=== PATIENT | male | born 1950 | race Caucasian/White ===

== ENCOUNTER 2022-07-16 04:12 | Day surgery (SDC) | payer MEDICARE, SELFPAY ==
[2022-07-16] VITALS (20 sets, daily range): BP systolic 103–153; BP diastolic 58–76; PULSE 81–100; RESP 10–20; TEMP 36.2–37; O2SAT 89–100
--- NOTE | ~2022-07-16 | CT_ITS ---
EXAMINATION: CT abdomen pelvis w con DATE: 07/16/2022 06:27 INDICATION: Abdominal pain. TECHNIQUE: Computed tomography (CT) of the abdomen and pelvis was performed with 100 mL Omnipaque-350 intravenous contrast. Automated exposure control and iterative reconstruction technique were employe d. The dose-length product was 1229.12 mGy-cm. COMPARISON: None FINDINGS: Lung bases are clear. Heart size is normal. No pericardial or pleural effusion. Liver, gallbladder, s pleen, pancreas, bilateral kidneys and right adrenal gland are normal. 1.3 cm left adrenal nodule sta tistically most likely to represent an adenoma. There is mild colonic diverticulosis with a sigmoid p redominance. There is no adjacent inflammatory change to suggest diverticulitis. No bowel obstructio n. There are several calcified appendicoliths and fluid within the appendix which is dilated to 1.3 c m but which is without surrounding inflammatory stranding to suggest acute appendicitis. Prostatomega ly measuring 4.8 x 4.2 cm. Bladder is normal. No pathologically enlarged abdominal or pelvic lymphade nopathy. No free intraperitoneal gas or fluid. Small fat-containing umbilical and left inguinal herni as. 8 mm linear density centrally at the within the glands of the penis which is of calcific density, unclear whether representing dystrophic calcification or foreign body. Spinal stimulator device in t he subcutaneous tissues at the left lower lumbar region with leads extending into the lower thoracic central canal terminating at the level of T8-T9. L5 laminectomy and partial L4 laminectomy with 3 mm anterolisthesis of L4 on L5. Mild thoracolumbar spondylosis. IMPRESSION: 1. Several calcified appendicoliths and fluid filling the appendix which is dilated to 1.3 cm which c ould be seen with acute appendicitis although there is no periappendiceal inflammatory stranding to m ore specifically suggest this. No other acute intra-abdominal/pelvic process. 2. Mild diverticulosis. 3. Prostatomegaly. Reviewed, dictated and finalized at location A. IMPRESSION: 1. Several calcified appendicoliths and fluid filling the appendix which is dil ated to 1.3 cm which could be seen with acute appendicitis although there is no periappendiceal inflammatory stranding to more specifically suggest this. No o ther acute intra-abdominal/pelvic process. 2. Mild diverticulosis. 3. Prostatomegaly.
--- NOTE | 2022-07-16 04:57 | ED.ABDPAIN ---
HPI - Abdominal Pain General Chief Complaint: Abdominal Pain Stated Complaint: RLQ abdominal pain Time Seen by Provider: 07/16/22 04:35 History of Present Illness HPI narrative: This is a 72-year-old male with past medical history of hypertension, who presents the emergency department complaining of severe abdominal pain beginning at approximately 10 PM last night. The patient states 2 days ago he noted some vague abdominal symptoms including nausea, that worsens to sharp abdominal pain associated with bowel distention and nausea. The patient denies vomiting. He states his last bowel movement was yesterday morning and last passed gas around the same time. Related Data Allergies Allergy/AdvReac Type Severity Reaction Status Date / Time No Known Allergies Allergy Verified 07/16/22 05:20 Review of Systems Review of Systems: CONSTITUTIONAL: Denies fever, chills, or sweats. EYES: Denies visual changes, redness, or discharge. ENT: Denies rhinorrhea, congestion, sore throat, or otalgia. CARDIOVASCULAR: Denies chest pain, palpitations, or edema. RESPIRATORY: Denies cough or dyspnea. GASTROINTESTINAL: Abdominal pain, nausea denies vomiting, or diarrhea. GENITOURINARY: Denies dysuria or hematuria. SKIN: Denies rash or itching. MUSCULOSKELETAL: Denies back pain, joint pain, or myalgia. NEUROLOGIC: Denies headache, numbness, dizziness, or weakness. PSYCHIATRIC: Denies anxiety or depression. Exam Narrative: GENERAL: Well-developed, well-nourished, appears uncomfortable HEAD: Normocephalic, atraumatic. EYES: PERRLA and EOMI. ENT: Nares clear, no rhinorrhea or epistaxis. Mucous membranes moist. Oropharynx without tonsillar hypertrophy exudate or other lesions. NECK: Supple. No adenopathy or masses. No carotid bruits or JVD CHEST: Clear to auscultation. No respiratory distress. No wheezes rales or rhonchi HEART: Regular rate and rhythm. No murmur heard. Normal peripheral pulses. ABDOMEN: Soft, diffuse tenderness to palpation greatest in the right lower quadrant, distended, normal active bowel sounds. No CVA tenderness to palpation EXTREMITIES: Normal range of motion. No edema. SKIN: Warm, dry, no rash. NEURO: No focal deficits. Alert and oriented x3. PSYCH: Normal mood and affect. Course Course Emergency Course: 07:10 - CT consistnet with appendicolith and early changes concerning for appendicitis. Paged general surgery for evaluation. 07:20 - Discussed patient with general surgeon, Dr. Scott who request patient be given a dose of Zosyn with plan to go to the OR today. Discussed recommendations with the patient who voices understanding and is comfortable with the plan. All questions answered to the patient and his 's satisfaction. Vital Signs Vital signs: Vital Signs Temperature 97.3 F L 07/16/22 04:19 Pulse Rate 100 07/16/22 04:19 Respiratory Rate 18 07/16/22 04:19 Blood Pressure 147/76 H 07/16/22 04:19 Pulse Oximetry 97 07/16/22 04:19 Oxygen Delivery Room Air 07/16/22 04:19 Temperature 97.3 F L 07/16/22 04:19 Pulse Rate 100 07/16/22 04:19 Respiratory Rate 18 07/16/22 04:19 Blood Pressure 147/76 H 07/16/22 04:19 Pulse Oximetry 92 07/16/22 05:34 Oxygen Delivery Room Air 07/16/22 04:19 MDM - Abdominal Pain MDM Narrative Medical decision making narrative: Plan: Labs, imaging, pain control, reassess Differential Diagnosis Differential diagnosis: Likely pancreatitis and other (Bowel obstruction, UTI, pyelonephritis, other) Lab Data Result diagrams: 07/16/22 05:31 07/16/22 05:31 Labs: Lab Results 07/16/22 07/16/22 07/16/22 Range/Units 05:31 05:31 05:31 WBC 23.5 H (4.5-10.0) K/mm3 RBC 4.70 (4.6-6.20) M/mm3 Hgb 14.0 (14.0-18.0) g/dL Hct 42.2 (42.0-52.0) % MCV 89.8 (80-100) fl MCH 29.8 (26-34) pg MCHC 33.2 (32-36) g/dl RDW 13.3 (11.5-14.5) % Plt Count 371 (150-375) k/mm3 MPV 10.1 (7.4-10.4) fl
[2022-07-16] MEDS: ONDANSETRON INJ 4 MG/2 ML VIAL IV PUSH (05:28)
[2022-07-16] MEDS: MORPHINE SULFATE (*CRX) 4 MG/ML INJ IV PUSH ×2 (05:28→07:21)
[2022-07-16] MEDS: SODIUM CHLORIDE 0.9% IV 1,000 ML 999 ML IV CONT (05:28)
[2022-07-16 05:35] LABS: Basophils Absolute Auto 0.2 K/mm3 (0.0-0.1); Basophils Percent Auto 0.8 % (0.2-1.2); Eosinophils Absolute Auto 0.5 K/mm3 (0-0.3); Eosinophils Percent Auto 2.3 % (0-4.4); Hematocrit 42.2 % (42.0-52.0); Immature Granulocyte Absolute 0.11 K/mm3 (0.00-0.031); Immature Granulocyte Percent A 0.5 % (0-0.5); Lymphocytes Absolute Auto 2.36 K/mm3 (0.9-3.2); Mean Corpuscular HGB Conc 33.2 g/dl (32-36); Mean Corpuscular Hemoglobin 29.8 pg (26-34); Mean Corpuscular Volume 89.8 fl (80-100); Mean Platelet Volume 10.1 fl (7.4-10.4); Monocytes Absolute Auto 1.6 K/mm3 (0.1-0.6); Monocytes Percent Auto 6.8 % (2.6-8.5); Neutrophils Absolute Auto 18.7 K/mm3 (1.3-6.7); Neutrophils Percent Auto 79.6 % (45.5-73.1); Platelet Count Result 371 k/mm3 (150-375); Red Cell Distribution Width 13.3 % (11.5-14.5); White Blood Count 23.5 K/mm3 (4.5-10.0)
[2022-07-16 05:46] LABS: Lactic Acid Reflex 1.4 mmol/L (0.7-2.0)
[2022-07-16 05:47] LABS: Alanine Aminotransferase 23 U/L (6-50); Albumin Level 4.5 g/dL (3.5-5.1); Alkaline Phosphatase 73 U/L (38-126); Anion Gap 11 mmol/L (8-16); Aspartate Amino Transferase 23 U/L (17-59); Bilirubin,Total 0.5 mg/dL (0.2-1.3); Blood Urea Nitrogen 25 mg/dL (9-20); Calcium 9.8 mg/dL (8.4-10.2); Carbon Dioxide 26 mmol/L (22-30); Chloride 101 mmol/L (98-107); Estimated CRCL calculation 72 ml/min; Estimated Glomerular Filt Rate > 60; Glucose 142 mg/dL (65-110); Lipase 60 U/L (23-300); Potassium 4.3 mmol/L (3.4-5.0); Sodium 138 mmol/L (137-145)
[2022-07-16 05:53] LABS: INR 1.1; Prothrombin Time 13.4 Seconds (11.1-14.7)
[2022-07-16 07:18] LABS: Appearance Urine Clear (Clear); Bilirubin Urine Negative (Negative); Blood Urine Negative (Negative); Color Urine Yellow (Yellow); Glucose Urine UA Negative (Negative); Ketones Urine Negative (Negative); Leukocyte Esterase Ur Negative LEU/UL (Negative); Nitrate Urine Negative (Negative); Protein Urine Negative (Negative); Urobilinogen Urine 0.2 mg/dL (<2.0); pH Urine 6.5 (5.0-9.0)
[2022-07-16 07:31] LABS: Add Urine Microscopic? NO
--- NOTE | 2022-07-16 08:26 | WPDANESEPPF ---
Anes - Initial Pre Proc Eval Procedure: Operation Date: 07/16/22 10:30 Proposed Procedures p Laparoscopic Appendectomy - Mateo Scott MD Date/Time: 07/16/22 08:26 Surgeon: Mateo Scott MD Pre Op Diagnosis: RLQ abdominal pain Patient Data Age: 72 Gender: M Height: 1.68 m Weight: 116.36 kg Last Vital Signs Temp 37.0 C 07/16/22 07:51 Pulse 90 07/16/22 07:27 Resp 16 07/16/22 07:27 BP 140/75 07/16/22 07:27 Pulse Ox 94 07/16/22 07:27 O2 Del Method Room Air 07/16/22 04:19 Allergies Allergy/AdvReac Type Severity Reaction Status Date / Time No Known Allergies Allergy Verified 07/16/22 07:57 Laboratory Tests 07/16/22 07/16/22 07/16/22 05:31 05:31 05:31 WBC 23.5 K/mm3 H K/mm3 (4.5-10.0) RBC 4.70 M/mm3 M/mm3 (4.6-6.20) Hgb 14.0 g/dL g/dL (14.0-18.0) Hct 42.2 % % (42.0-52.0) MCV 89.8 fl fl (80-100) MCH 29.8 pg pg (26-34) MCHC 33.2 g/dl g/dl (32-36) RDW 13.3 % % (11.5-14.5) Plt Count 371 k/mm3 k/mm3 (150-375) MPV 10.1 fl fl (7.4-10.4) Immature Gran % (Auto) 0.5 % % (0-0.5) Neut % (Auto) 79.6 % H % (45.5-73.1) Lymph % (Auto) 10.0 % L % (18.3-44.2) [place] % (Auto) 6.8 % % (2.6-8.5) Eos % (Auto) 2.3 % % (0-4.4) Baso % (Auto) 0.8 % % (0.2-1.2) Lymph # (Auto) 2.36 K/mm3 K/mm3 (0.9-3.2) [place] # (Auto) 1.6 K/mm3 H K/mm3 (0.1-0.6) Eos # (Auto) 0.5 K/mm3 H K/mm3 (0-0.3) Baso # (Auto) 0.2 K/mm3 H K/mm3 (0.0-0.1) Abs Immat Gran (auto) 0.11 K/mm3 H K/mm3 (0.00-0.031) Absolute Neuts (auto) 18.7 K/mm3 H K/mm3 (1.3-6.7) Absolute Nucleated RBC 0.0 K/mm3 K/mm3 (0.0-0.012) Nucleated RBC % 0.0 % % (0.0-0.2) PT 13.4 Seconds Seconds (11.1-14.7) INR 1.1 Sodium 138 mmol/L mmol/L (137-145) Potassium 4.3 mmol/L mmol/L (3.4-5.0) Chloride 101 mmol/L mmol/L (98-107) Carbon Dioxide 26 mmol/L mmol/L (22-30) Anion Gap 11 mmol/L mmol/L (8-16) BUN 25 mg/dL H mg/dL (9-20) Creatinine 1.00 mg/dL mg/dL (0.7-1.3) Estim Creat Clear Calc 72 ml/min ml/min Estimated GFR > 60 (59 - ) Glucose 142 mg/dL H mg/dL (65-110) Lactic Acid Calcium 9.8 mg/dL mg/dL (8.4-10.2) Total Bilirubin 0.5 mg/dL mg/dL (0.2-1.3) AST 23 U/L U/L (17-59) ALT 23 U/L U/L (6-50) Alkaline Phosphatase 73 U/L U/L (38-126) Total Protein 7.0 g/dL g/dL (6.3-8.2) Albumin 4.5 g/dL g/dL (3.5-5.1) Lipase 60 U/L U/L (23-300) Urine Color Urine Appearance Urine pH Ur Specific [place] Urine Protein Urine Glucose (UA) Urine Ketones Ur Blood (Man) Urine Nitrate Urine Bilirubin Urine Urobilinogen Leukocyte Esterase Rfl 07/16/22 07/16/22 05:31 06:58 WBC RBC Hgb Hct MCV MCH MCHC RDW Plt Count MPV Immature Gran % (Auto) Neut % (Auto) Lymph % (Auto) [place] % (Auto) Eos % (Auto) Baso % (Auto) Lymph # (Auto) [place] # (Auto) Eos # (Auto) Baso # (Auto) Abs Immat Gran (auto) Absolute Neuts (auto) Absolute Nucleated RBC Nucleated RBC % PT INR Sodium Potassium Chloride Carbon Dioxide Anion Gap BUN Creatinine Estim Creat Clear Calc Estimated GFR Glucose Lactic Acid 1.4
[2022-07-16] MEDS: fentaNYL CITRATE INJ (*CRX) 100 MCG/2 ML VIAL 25 MCG IV PUSH ×4 (08:30→08:38)
[2022-07-16] MEDS: LACTATED RINGERS 1,000 ML 30 ML IV CONT ×2 (08:30→09:59)
--- NOTE | 2022-07-16 08:31 | WPDHPUPDATE1 ---
History and Physical Update Update Date/Time: 07/16/22 08:31 History and Physical has been reviewed, including an updated exam of the patient. There are NO changes in the patient's condition. Risks, benefits, and alternatives have been discussed and questions answered. Patient agrees to proceed with procedure.
--- NOTE | 2022-07-16 08:36 | PM.SD2 ---
Same Day Admit/Disch: [facility] History of Present Illness Chief complaint: RLQ abdominal pain Narrative: Rom Awan is a 72 year old male who started having right lower quadrant the abdominal pain rather abruptly about 8:00 a.m. last night. The pain would not go away. He tried to go to bed around 10:00 p.m. but could not get comfortable. The pain persisted and in fact got worse. He had some nausea. About 3:00 a.m. he decided to go to the emergency room. In the emergency room he had emesis. He was noted to have diffuse abdominal tenderness but most tender in the right lower quadrant. He had a very elevated white blood cell count of twenty-three thousand five hundred. He did not have any fever but had some tachycardia. He had a CT scan of the abdomen and pelvis that showed a dilated appendix with multiple appendicoliths. The appendix was 1.3 cm in dimension but surprisingly there was no periappendiceal inflammatory changes. Patient has continued to have severe right lower quadrant abdominal pain. He is taken to surgery now for laparoscopic appendectomy. [facility] Past Medical History Medical History (Updated 07/16/22 @ 10:09 by Mateo Scott MD) Asthma Hyperlipidemia Hypertension Same Day Admit/Disch: Med Pre-admit Medications Home Medications Medication Instructions Recorded Confirmed Type hydrocodone 5 mg-acetaminophen 325 1 - 2 tablet PO Q6H PRN pain #12 07/16/22 Rx mg tablet tabs ibuprofen 600 mg tablet 600 mg PO Q6H PRN pain #14 tabs 07/16/22 Rx Exam Const: General: cooperative, no acute distress, alert, awake and uncomfortable Nutritional Appearance: obese HENMT: Head: normocephalic and atraumatic Mouth: Yes Normal oral and palatal mucosa present Eyes: Conjunctivae: conjunctivae normal Pupils: Equal, round and reactive pupils present EOM: EOMs intact bilaterally Neck: Neck: normal visual inspection, no lymphadenopathy and nontender Resp: Effort & Inspection: normal respiratory effort Auscultation: clear to auscultation bilaterally Cardio: Rate: regular rate Rhythm: regular rhythm Heart sounds: no gallops, no murmurs and no rubs GI: Inspection: non-distended, obesity, no scars and no visible herniation GI Palp: Yes Soft to palpation, Yes Tenderness to palpation present (GI) (Diffusely tender but more so in the right lower quadrant), Yes Guarding due to palpation present (GI) (Right lower quadrant), No Hepatomegaly present, No Splenomegaly present, No Hernia present and No Palpable mass present Auscultation: Hypoactive bowel sounds present Skin: Lesions: no lesions Rashes: no rashes Neuro: General: no focal motor deficits and CN's II-XI intact bilaterally Cranial nerves: Yes Equal, round and reactive pupils present, Yes Bilaterally intact EOM present, Yes facial symmetry and Yes Midline tongue present Speech: normal speech Motor exam (neuro): 5/5 motor strength present throughout and Motor abnormalities not present Extrem: General: no clubbing, cyanosis or edema and edema Psych: Affect: normal affect Thought process: Normal thought process present Insight: Good insight present (Psych) DS: Data Data Completed and Pending Labs on day of discharge: Labs from last 24 hours 07/16/22 07/16/22 07/16/22 06:58 05:31 05:31 WBC RBC Hgb Hct MCV MCH MCHC RDW Plt Count MPV Immature Gran % (Auto) Neut % (Auto) Lymph % (Auto) [place] % (Auto) Eos % (Auto) Baso % (Auto) Lymph # (Auto) [place] # (Auto) Eos # (Auto) Baso # (Auto) Abs Immat Gran (auto) Absolute Neuts (auto) Absolute Nucleated RBC Nucleated RBC % PT INR Sodium 138 Potassium 4.3 Chloride 101 Carbon Dioxide 26 Anion Gap 11 BUN 25 H Creatinine 1.00 Estim Creat Clear Calc 72 Estimated GFR > 60 Glucose 142 H Lactic Acid 1.4 Calcium 9.8 Total Bilirubin 0.5 AST 23 ALT 23 Alkaline Phosphatase 73 T
--- NOTE | 2022-07-16 08:45 | WPDHPUPDATE1 ---
History and Physical Update Update Date/Time: 07/16/22 08:45 History and Physical has been reviewed, including an updated exam of the patient. There are NO changes in the patient's condition. Risks, benefits, and alternatives have been discussed and questions answered. Patient agrees to proceed with procedure.
[2022-07-16] MEDS: BUPIVACAINE/EPINEPHRINE 0.25% 50 ML VIAL INFILTRATE (09:52)
--- NOTE | 2022-07-16 09:59 | P.OP_ITS ---
Procedure Note - Detailed Date of Procedure 07/16/22 Pre-op Diagnosis Acute appendicitis Post-op Diagnosis Same Procedure Performed Laparoscopic appendectomy Surgeon Mateo Scott MD Administration Intern Ava Mora VENDING MACHINE COLLECTOR VENDING MACHINE COLLECTOR Anesthesia General and Local (0.25% Marcaine with epinephrine) Indications Patient is a 72-year-old who came to the emergency room with right lower quadrant abdominal pain nausea and vomiting. [place] [id number]. He had tenderness and pain in the right lower quadrant. CT scan showed acute appendicitis. He is taken to surgery now for laparoscopic appendectomy. Findings Patient had a very dilated acutely inflamed appendix with evidence of several appendicoliths in the proximal appendix. There was no evidence of a gangrenous or ruptured appendix. Description of Procedure Patient was taken to surgery and induced into general anesthesia. The abdomen is prepped and draped. Trocars were placed in the usual fashion using applied Medical optical trocars and local anesthetic. Patient was placed in Trendelenburg with the right-side elevated. The appendix was freed from some inflammatory adhesions. It was dissected and mobilized so that it could be e xposed. Dissection was then carried out in the mesoappendix. This was done primarily with the cautery. The appendiceal artery was thoroughly cauterized and divided. Other appendiceal vessels were cauterized and divided. We continued our dissection and eventually skeletonized the base of the appendix. A Vicryl endoloop was then used to ligate the appendix at its base. We amputated the appendix just above the ligature. The mucosa of the appendiceal stump was cauterized. The appendix was then removed in an Endo-Catch bag. We replaced the 10 11 left lower quadrant trocar. We then reviewed the right lower quadrant and the areas of dissection. All looked good with no evidence of bleeding or other issues. We evacuated CO2 and removed the trocar sleeves. Skin wounds were closed with subcuticular 4-0 Monocryl skin suture. Wounds were dressed with Exofin surgical adhesive. Patient was awakened and taken to recovery in good condition. Sponge and needle counts were correct x2. Estimated Blood Loss -5 Drains No Packing No Pathology Yes (Appendix) Complications No immediate complications Condition Stable Disposition PACU [facility] Billing Surgery - Charge Forward: Surgery Billing (Laparoscopic appendectomy)
--- NOTE | 2022-07-16 10:48 | SUR.PHASEI ---
1145: Simple mask removed.
== END 2022-07-16 13:57 | disposition home or self-care (01) ==
LOC: ANHED 05:12 → ANHSURGERY 07:24
PROVIDERS: Emergency Provider Preventive Medicine Aerospace Medicine; PCP Family Medicine; Visit Provider Surgery
PROC: 0DTJ4ZZ Resection of Appendix, Percutaneous Endoscopic Approach (ICD-10-PCS; CPT 44970; principal; 2022-07-16 10:30)
DX: K35.80 Unspecified acute appendicitis (principal); N40.1 Benign prostatic hyperplasia with lower urinary tract symptoms; E66.01 Morbid (severe) obesity due to excess calories; Z68.41 Body mass index [BMI] 40.0-44.9, adult
CPT/HCPCS: 44970; 36415; 74177; 80053; 81003; 83605; 83690; 85025; 85610; 88304; 96361; 96374; 96375; 96376; 99285; J0330; J1100; J2270; J2370; J2405; J2543; J2704; J2710; J3010; J7030; J7120; Q9967